=== PATIENT | female | born 1990 | race Caucasian/White ===

== ENCOUNTER 2018-11-30 11:33 | Inpatient (IN) | payer MEDICAID, OTHER ==
[~2018-11-30] VITALS: Ht 149.9 cm; Wt 102.8 kg
[~2018-11-30 11:33] MED LIST: LABE100T7 PO; PNV11TAB PO
[2018-11-30] MEDS ORDERED: ACETAMINOPHEN 500 MG TAB PO STA (14:00)
[2018-11-30] MEDS: LACTATED RINGER'S 1,000 ML IV SCH ×2 (16:21→18:51)
[2018-11-30 18:45] VITALS: Ht 149.9 cm; Wt 102.8 kg
[2018-11-30 18:46] VITALS: BP 137/71; PULSE 72; RESP 20
[2018-12-01] MEDS: LACTATED RINGER'S 1,000 ML IV SCH ×3 (03:03→21:06)
[2018-12-01] MEDS: LABETALOL 100 MG TAB PO SCH (09:04)
[2018-12-02] MEDS: LACTATED RINGER'S 1,000 ML IV SCH (07:18)
[2018-12-02] MEDS: LABETALOL 100 MG TAB PO SCH (08:49)
== END 2018-12-02 13:10 | disposition home or self-care (01) | DRG 833 ==
LOC: OBT 11:33 → L-D 11:33 → OBT 15:10 → L-D 15:10
PROVIDERS: ADMIT Obstetrics & Gynecology; ATTEND Obstetrics & Gynecology
DX: O41.03X0 Oligohydramnios, third trimester, not applicable or unspecified (principal); Z3A.32 32 weeks gestation of pregnancy
CPT/HCPCS: 76815; 76817; 76818; 80053; 81001; 84112; 84560; 85025; G0463; J7120

== ENCOUNTER 2018-12-04 10:13 | Inpatient (IN) | payer OTHER ==
[~2018-12-04] VITALS: Ht 129.5 cm; Wt 102.3 kg
[2018-12-04 11:10] VITALS: BP 128/69; PULSE 79; RESP 18; Ht 129.5 cm; Wt 102.3 kg
[2018-12-04] MEDS: LACTATED RINGER'S 1,000 ML IV SCH ×2 (12:00→17:58)
[2018-12-05] MEDS: LACTATED RINGER'S 1,000 ML IV SCH ×2 (00:38→18:35)
[2018-12-05] MEDS: LABETALOL 100 MG TAB PO SCH (08:45)
[2018-12-06] MEDS: LACTATED RINGER'S 1,000 ML IV SCH (01:57)
[2018-12-06] MEDS: LABETALOL 100 MG TAB PO SCH (10:12)
== END 2018-12-06 21:16 | disposition home or self-care (01) | DRG 832 ==
LOC: L-D 10:13 → OBT 10:13 → L-D 11:35 → OBT 11:35
PROVIDERS: ADMIT Obstetrics & Gynecology; ATTEND Obstetrics & Gynecology
DX: O41.03X0 Oligohydramnios, third trimester, not applicable or unspecified (principal); O10.013 Pre-existing essential hypertension complicating pregnancy, third trimester; Z3A.34 34 weeks gestation of pregnancy; O34.219 Maternal care for unspecified type scar from previous cesarean delivery
CPT/HCPCS: 76816; 76818; 83735; G0463; J7120

== ENCOUNTER 2018-12-10 11:52 | Inpatient (IN) | payer OTHER ==
[~2018-12-10] VITALS: Ht 160 cm; Wt 104.2 kg
[2018-12-10 12:21] VITALS: Ht 160 cm; Wt 104.2 kg
[2018-12-10 12:22] VITALS: BP 141/71; PULSE 71; RESP 18
[2018-12-10] MEDS: LACTATED RINGER'S 1,000 ML IV SCH ×2 (15:56→23:36)
[2018-12-11] MEDS: LACTATED RINGER'S 1,000 ML IV SCH ×2 (07:19→16:35)
[2018-12-11] MEDS: LABETALOL 100 MG TAB PO SCH (08:45)
[2018-12-12] MEDS: LACTATED RINGER'S 1,000 ML IV SCH ×4 (00:41→17:10)
[2018-12-12] MEDS: LABETALOL 100 MG TAB PO SCH (08:38)
[2018-12-12] MEDS ORDERED: MISOPROSTOL 200 MCG TAB PR PRN ×2 (13:30→22:30)
[2018-12-12] MEDS ORDERED: CARBOPROST 250 MCG INJ IM PRN ×2 (13:30→22:30)
[2018-12-12] MEDS ORDERED: OXYTOCIN 30 UNITS/LR 500 ML IV PRN ×2 (13:30→22:30)
[2018-12-12] MEDS ORDERED: CEFAZOLIN 2 GM/50 ML (PMX) 50 ML IVPB SCH (13:30)
[2018-12-12] MEDS ORDERED: METHYLERGONOVINE 0.2 MG INJ IM PRN (13:30)
[2018-12-12] MEDS ORDERED: OXYTOCIN 30 UNITS/LR 500 ML BAG IV ONE (17:50)
[2018-12-12] MEDS ORDERED: morphine SULFATE/PF (10 MG/10 ML) INJ ONE (17:51)
[2018-12-12] MEDS ORDERED: OXYTOCIN 10 UNIT INJ ONE ×2 (17:51)
[2018-12-12] MEDS ORDERED: ONDANSETRON 4 MG INJ ONE (17:51)
[2018-12-12 22:00] VITALS: BP 143/74; PULSE 70; RESP 18
[2018-12-12] MEDS ORDERED: morphine 2 MG INJ IV PRN (22:00)
[2018-12-12] MEDS ORDERED: ONDANSETRON 4 MG INJ IV PRN (22:00)
[2018-12-12] MEDS ORDERED: NALOXONE (0.4 MG/ML) INJ IV PRN (22:00)
[2018-12-12] MEDS ORDERED: DIPHENHYDRAMINE 50 MG INJ IV PRN (22:00)
[2018-12-12] MEDS ORDERED: LACTATED RINGER'S 1,000 ML IV SCH (22:26)
[2018-12-12] MEDS ORDERED: OXYTOCIN 30 UNITS/LR 500 ML IV SCH (22:26)
[2018-12-12] MEDS ORDERED: LANOLIN HPA 1 PKT TOP PRN (22:30)
[2018-12-12 23:00] VITALS: BP 138/72; PULSE 88; RESP 19
[2018-12-13 03:45] VITALS: BP 134/77; PULSE 92; RESP 18
[2018-12-13 08:26] VITALS: BP 113/59; PULSE 95; RESP 18
[2018-12-13] MEDS: KETOROLAC 30 MG INJ IV PRN ×2 (08:27→15:10)
[2018-12-13] MEDS: SENNA/DOCUSATE NA (8.6MG/50MG) TAB PO SCH ×2 (08:27→21:00)
[2018-12-13 11:45] VITALS: BP 116/64; PULSE 83; RESP 18
[2018-12-13 15:35] VITALS: RESP 18
[2018-12-13 15:40] VITALS: BP 117/71; PULSE 83; RESP 20
[2018-12-13] MEDS ORDERED: OXYCODONE/ACETAMINOPHEN (5/325) TAB PO PRN (18:00)
[2018-12-13 19:30] VITALS: BP 137/74; PULSE 85; RESP 18
[2018-12-13] MEDS: OXYCODONE/ACETAMINOPHEN (5/325) TAB PO PRN (21:01)
[2018-12-13] MEDS: IBUPROFEN 800 MG TAB PO SCH (23:38)
[2018-12-14 00:15] VITALS: BP 115/72; PULSE 83; RESP 18
[2018-12-14 03:56] VITALS: BP 112/64; PULSE 81; RESP 18
[2018-12-14] MEDS: IBUPROFEN 800 MG TAB PO SCH ×3 (05:32→21:35)
[2018-12-14 08:30] VITALS: BP 136/73; PULSE 76; RESP 76
[2018-12-14] MEDS: SENNA/DOCUSATE NA (8.6MG/50MG) TAB PO SCH ×2 (10:08→21:35)
[2018-12-14 16:13] VITALS: BP 138/74; PULSE 79; RESP 20
[2018-12-14 20:15] VITALS: BP 149/80; PULSE 80; RESP 18
[2018-12-15 04:15] VITALS: BP 119/63; PULSE 70; RESP 19
[2018-12-15] MEDS: OXYCODONE/ACETAMINOPHEN (5/325) TAB PO PRN (04:19)
[2018-12-15] MEDS: IBUPROFEN 800 MG TAB PO SCH ×2 (05:43→13:07)
[2018-12-15 08:23] VITALS: BP 118/72; PULSE 65; RESP 18
[2018-12-15] MEDS: SENNA/DOCUSATE NA (8.6MG/50MG) TAB PO SCH (08:39)
[2018-12-15] MEDS ORDERED: DIPHTH/TET/ACEL PERTUSS (ADULT) 0.5 ML VIAL IM* ONE (09:00)
== END 2018-12-15 18:00 | disposition home or self-care (01) | DRG 784 ==
LOC: OBT 11:52 → L-D 11:52 → OBT 14:00 → L-D 14:00 → PP1 15:09 → L-D 12-12 17:20 → MS1 12-12 22:20
PROVIDERS: ADMIT Obstetrics & Gynecology; ATTEND Obstetrics & Gynecology
PROC: 0UT70ZZ Resection of Bilateral Fallopian Tubes, Open Approach (ICD-10-PCS; 2018-12-12)
PROC: 10907ZC Drainage of Amniotic Fluid, Therapeutic from Products of Conception, Via Natural or Artificial Opening (ICD-10-PCS; 2018-12-12)
PROC: 10D00Z1 Extraction of Products of Conception, Low, Open Approach (ICD-10-PCS; principal; 2018-12-12 17:30)
DX: O34.211 Maternal care for low transverse scar from previous cesarean delivery (principal); O41.03X0 Oligohydramnios, third trimester, not applicable or unspecified; O11.4 Pre-existing hypertension with pre-eclampsia, complicating childbirth; Z37.0 Single live birth; Z3A.34 34 weeks gestation of pregnancy
CPT/HCPCS: 76815; 76818; 80053; 81001; 82575; 84156; 84560; 85025; 85610; 85730; 86592; 86850; 86900; 86901; 87340; 88302; 88307; 90715; G0463; J0690; J1885; J2274; J2405; J2590; J7120